=== PATIENT | female | born 1980 | race American Indian/Alaskan Native ===

== ENCOUNTER 2016-11-26 10:53 | Emergency (ER) | payer SELFPAY | END 2016-11-26 10:54 | disposition left against medical advice (07) | LOC: ED 10:53 | DX: R05 Cough (principal); Z53.21 Procedure and treatment not carried out due to patient leaving prior to being seen by health care provider ==

== ENCOUNTER 2017-01-25 08:45 | Emergency (ER) | payer OTHER ==
[2017-01-25 10:32] LABS: Basophils % (Auto) 0.6 % (0.0-1.8); Eosinophils % (Auto) 1.4 % (0.0-4.3); Hematocrit 40.9 % (30.3-42.9); Mean Corpuscular HGB Conc 34 % (30-34); Mean Corpuscular Hemoglobin 32 pg (28-32); Mean Corpuscular Volume 93 fl (79-97); Platelet Count 201 K/mm3 (140-440); Red Blood Count 4.42 M/mm3 (3.65-5.03); Red Cell Distribution Width 13.9 % (13.2-15.2); White Blood Count 5.4 K/mm3 (4.5-11.0)
[2017-01-25 10:53] LABS: Alanine Aminotransferase 30 units/L (7-56); Albumin 4.2 g/dL (3.9-5); Albumin/Globulin Ratio 1.2 %; Alkaline Phosphatase 53 units/L (35-129); Anion Gap 14 mmol/L; Blood Urea Nitrogen 10 mg/dL (7-17); Carbon Dioxide 26 mmol/L (22-30); Chloride 102.3 mmol/L (98-107); Glucose 91 mg/dL (65-100); Lipase 20 units/L (13-60); Potassium 3.5 mmol/L (3.6-5.0); Sodium 139 mmol/L (137-145); Total Protein 7.7 g/dL (6.3-8.2)
[2017-01-25 12:35] LABS: Bacteria,Urine 1+ /HPF (Negative); Bilirubin,Urine NEG (Negative); Blood,Urine MOD (Negative); Ketones,Urine NEG (Negative); Leukocyte Esterase,Urine NEG (Negative); Mucus,Urine 1+ /HPF; Nitrite,Urine NEG (Negative); Protein,Urine <15 mg/dL mg/dL (Negative); Urobilinogen,Urine < 2.0 mg/dL (<2.0)
--- NOTE | 2017-01-25 15:15 | Emergency Department Report ---
ED Abdominal Pain HPI - General Chief Complaint: Abdominal Pain Stated Complaint: RT SIDE PAIN Time Seen by Provider: 01/25/17 15:02 Source: patient Mode of arrival: Ambulatory Limitations: No Limitations - History of Present Illness Initial Comments: Patient comes into the ER today with complaints of right flank pain for the past week. Patient states that it started off as kind of a dull ache and it has now progressed to a sharp pain in her right flank. Patient denies any dysuria, abdominal pain, nausea, vomiting, bowel changes. Patient denies any history of kidney stones. Patient does state that she has noticed a little bit of blood in her urine. Patient states that it feels like the pain is inside her. Patient states that movement does seem to make the pain worse as well as deep breathing. MD Complaint: flank pain -: week(s) (1) Location: R flank - Related Data Previous Rx's Medication Instructions Recorded Last Taken Type Ciprofloxacin HCl [Ciprofloxacin 500 mg PO BID #14 tablet 01/25/17 Unknown Rx TAB] predniSONE [Deltasone] 60 mg PO QDAY 5 Days 01/25/17 Unknown Rx traMADol [Ultram] 50 mg PO Q4HR PRN #18 tablet 01/25/17 Unknown Rx Allergies Allergy/AdvReac Type Severity Reaction Status Date / Time No Known Allergies Allergy Unverified 01/25/17 09:36 ED Review of Systems ROS: Stated complaint: RT SIDE PAIN Other details as noted in HPI Constitutional: denies: chills, fever Eyes: denies: eye pain, eye discharge, vision change ENT: denies: ear pain, throat pain Respiratory: denies: cough, shortness of breath, wheezing Cardiovascular: denies: chest pain, palpitations Endocrine: no symptoms reported Gastrointestinal: abdominal pain (right flank). denies: nausea, vomiting, diarrhea, constipation Genitourinary: hematuria. denies: urgency, dysuria, discharge Musculoskeletal: denies: back pain, joint swelling, arthralgia Skin: denies: rash, lesions Neurological: denies: headache, weakness, paresthesias Psychiatric: denies: anxiety, depression Hematological/Lymphatic: denies: easy bleeding, easy bruising ED Past Medical Hx - Medications Home Medications: Home Medications Medication Instructions Recorded Confirmed Last Taken Type Ciprofloxacin HCl [Ciprofloxacin 500 mg PO BID #14 tablet 01/25/17 Unknown Rx TAB] predniSONE [Deltasone] 60 mg PO QDAY 5 Days 01/25/17 Unknown Rx traMADol [Ultram] 50 mg PO Q4HR PRN #18 tablet 01/25/17 Unknown Rx ED Physical Exam - General Limitations: No Limitations General appearance: alert, in no apparent distress, obese - Head Head exam: Present: atraumatic, normocephalic - Eye Eye exam: Present: normal appearance - ENT ENT exam: Present: mucous membranes moist - Neck Neck exam: Present: normal inspection - Respiratory Respiratory exam: Present: normal lung sounds bilaterally. Absent: respiratory distress, decreased breath sounds - Cardiovascular Cardiovascular Exam: Present: regular rate, normal rhythm. Absent: systolic murmur, diastolic murmur, rubs, gallop - GI/Abdominal GI/Abdominal exam: Present: soft, tenderness (right flank tenderness and right lower quadrant), normal bowel sounds. Absent: distended, guarding, rebound - Extremities Exam Extremities exam: Present: normal inspection - Back Exam Back exam: Present: normal inspection, CVA tenderness (R) - Neurological Exam Neurological exam: Present: alert, oriented X3, CN II-XII intact - Psychiatric Psychiatric exam: Present: normal affect, normal mood - Skin Skin exam: Present: warm, dry, intact, normal color. Absent: rash ED Course Vital Signs 01/25/17 01/25/17 09:37 16:06 Temperature 98.2 F Pulse Rate 73 67 Respiratory 20 Rate Blood Pressure 173/109 Blood Pressure 143/106 [Left] O2 Sat by Pulse 99 97 Oximetry ED Medical Decision Making - Lab Data Result diagrams: 01/25/17 10:00 01/25/17 10:00 Lab Results 01/25/17 01/25/17 01/25/17 Range/Units 10:00 10:00 12:15 WBC 5.4 (4.5-11.0) K/mm3 RBC 4.42 (3.65-5.03) M/mm3 Hgb 14.0 (10.1-14.3) gm/dl Hct 40.9 (30.3-42.9) % MCV 93 (79-97) fl MCH 32 (28-32) pg MCHC 34 (30-34) % RDW 13.9 (13.2-15.2) % Plt Count 201 (140-440) K/mm3 Lymph % (Auto) 29.7 (13.4-35.0) % Baca % (Auto) 5.8 (0.0-7.3) % Eos % (Auto) 1.4 (0.0-4.3) % Baso % (Auto) 0.6 (0.0-1.8) % Lymph # 1.6 (1.2-5.4) K/mm3 Baca # 0.3 (0.0-0.8) K/mm3 Eos # 0.1 (0.0-0.4) K/mm3 Baso # 0.0 (0.0-0.1) K/mm3 Seg Neutrophils % 62.5 (40.0-70.0) % Seg Neutrophils # 3.4 (1.8-7.7) K/mm3 Sodium 139 (137-145) mmol/L Potassium 3.5 L (3.6-5.0) mmol/L Chloride 102.3 (98-107) mmol/L Carbon Dioxide 26 (22-30) mmol/L Anion Gap 14 mmol/L BUN 10 (7-17) mg/dL Creatinine 0.8 (0.7-1.2) mg/dL Estimated GFR > 60 ml/min BUN/Creatinine Ratio 12.50 % Glucose 91 (65-100) mg/dL Calcium 9.0 (8.4-10.2) mg/dL Total Bilirubin 0.40 (0.1-1.2) mg/dL AST 21 (5-40) units/L ALT 30 (7-56) units/L Alkaline Phosphatase 53 (35-129) units/L Total Protein 7.7 (6.3-8.2) g/dL Albumin 4.2 (3.9-5) g/dL Albumin/Globulin Ratio 1.2 % Lipase 20 (13-60) units/L HCG, Qual (Negative) Urine Color Yellow (Yellow) Urine Turbidity Clear (Clear) Urine pH 6.0 (5.0-7.0) Ur Specific Greer 1.019 (1.003-1.030) Urine Protein <15 mg/dl (Negative) mg/dL Urine Glucose (UA) Neg (Negative) mg/dL Urine Ketones Neg (Negative) mg/dL Urine Blood Mod (Negative) Urine Nitrite Neg (Negative) Urine Bilirubin Neg (Negative) Urine Urobilinogen < 2.0 (<2.0) mg/dL Ur Leukocyte Esterase Neg (Negative) Urine WBC (Auto) 3.0 (0.0-6.0) /HPF Urine RBC (Auto) 3.0 (0.0-6.0) /HPF U Epithel Cells (Auto) 2.0 (0-13.0) /HPF Urine Bacteria (Auto) 1+ (Negative) /HPF Urine Mucus 1+ /HPF 01/25/17 Range/Units 14:27 WBC (4.5-11.0) K/mm3 RBC (3.65-5.03) M/mm3 Hgb (10.1-14.3) gm/dl Hct (30.3-42.9) % MCV (79-97) fl MCH (28-32) pg MCHC (30-34) % RDW (13.2-15.2) % Plt Count (140-440) K/mm3 Lymph % (Auto) (13.4-35.0) % Baca % (Auto) (0.0-7.3) % Eos % (Auto) (0.0-4.3) % Baso % (Auto) (0.0-1.8) % Lymph # (1.2-5.4) K/mm3 Baca # (0.0-0.8) K/mm3 Eos # (0.0-0.4) K/mm3 Baso # (0.0-0.1) K/mm3 Seg Neutrophils % (40.0-70.0) % Seg Neutrophils # (1.8-7.7) K/mm3 Sodium (137-145) mmol/L Potassium (3.6-5.0) mmol/L Chloride (98-107) mmol/L Carbon Dioxide (22-30) mmol/L Anion Gap mmol/L BUN (7-17) mg/dL Creatinine (0.7-1.2) mg/dL Estimated GFR ml/min BUN/Creatinine Ratio % Glucose (65-100) mg/dL Calcium (8.4-10.2) mg/dL Total Bilirubin (0.1-1.2) mg/dL AST (5-40) units/L ALT (7-56) units/L Alkaline Phosphatase (35-129) units/L Total Protein (6.3-8.2) g/dL Albumin (3.9-5) g/dL Albumin/Globulin Ratio % Lipase (13-60) units/L HCG, Qual Negative (Negative) Urine Color (Yellow) Urine Turbidity (Clear) Urine pH (5.0-7.0) Ur Specific Greer (1.003-1.030) Urine Protein (Negative) mg/dL Urine Glucose (UA) (Negative) mg/dL Urine Ketones (Negative) mg/dL Urine Blood (Negative) Urine Nitrite (Negative) Urine Bilirubin (Negative) Urine Urobilinogen (<2.0) mg/dL Ur Leukocyte Esterase (Negative) Urine WBC (Auto) (0.0-6.0) /HPF Urine RBC (Auto) (0.0-6.0) /HPF U Epithel Cells (Auto) (0-13.0) /HPF Urine Bacteria (Auto) (Negative) /HPF Urine Mucus /HPF - Radiology Data Radiology results: report reviewed CT scan of the abdomen and pelvis without contrast reveals normal-appearing liver, spleen, pancreas, gallbladder, kidneys, appendix. There is no hydronephrosis or kidney stones noted. - Medical Decision Making Patient is nontoxic and hemodynamically stable. The patient does have hematuria noted on lab work and history of symptoms concerning for possible kidney stone. CT imaging obtained and reviewed the results with patient in room. CT imaging as well as lab workup here essentially unremarkable other than some hematuria. Patient states that she has the pain that is worse with movement as well as deep breathing. I have some concern for possible patient having a noncalcified kidney stone versus potentially pinched nerve in her back causing her symptoms. I will refer patient to urology for further evaluation of her hematuria and start patient on some medications for possible pinched nerve in her back. Patient is in agreement with treatment plan and patient is stable for discharge. Critical care attestation.: If time is entered above; I have spent that time in minutes in the direct care of this critically ill patient, excluding procedure time. ED Disposition Clinical Impression: Right flank pain, Hematuria Disposition: TO HOME OR SELFCARE Is pt being admited?: No Does the pt Need Aspirin: No Condition: Good Instructions: Acute Hematuria (ED), Flank Pain (ED) Prescriptions: Ciprofloxacin HCl [Ciprofloxacin TAB] 500 mg PO BID #14 tablet predniSONE [Deltasone] 60 mg PO QDAY 5 Days traMADol [Ultram] 50 mg PO Q4HR PRN #18 tablet PRN Reason: Pain Referrals: PRIMARY CARE, [Primary Care Provider] - 3-5 Days RAH HUANG MD [Staff Physician] - 3-5 Days Time of Disposition: 16:27
--- NOTE | 2017-01-25 15:55 | Cat Scan Report ---
CT of the abdomen and pelvis without contrast. History: Right flank pain with hematuria. Findings: The liver, spleen, pancreas, and gallbladder are normal. The kidneys are normal in size and configuration with no evidence of mass or hydronephrosis. No intrarenal calculi are seen. No ureteral stones or dilatation. No significant pelvic findings are seen. There is no radiographic evidence of appendicitis. Impression: Negative study.
[2017-01-25 16:07] VITALS: BP 143/106
== END 2017-01-25 16:35 | disposition home or self-care (01) ==
LOC: ED 08:45
DX: R10.30 Lower abdominal pain, unspecified (principal); R31.9 Hematuria, unspecified
CPT/HCPCS: 36415; 74176; 80053; 81001; 83690; 84703; 85025; 99284

== ENCOUNTER 2017-04-06 10:31 | Emergency (ER) | payer MEDICAID, OTHER ==
[2017-04-06 12:02] LABS: Basophils % (Auto) 0.5 % (0.0-1.8); Eosinophils % (Auto) 4.1 % (0.0-4.3); Hematocrit 39.8 % (30.3-42.9); Hemoglobin 13.5 gm/dl (10.1-14.3); Mean Corpuscular HGB Conc 34 % (30-34); Mean Corpuscular Hemoglobin 31 pg (28-32); Mean Corpuscular Volume 93 fl (79-97); Platelet Count 201 K/mm3 (140-440); Red Cell Distribution Width 14.5 % (13.2-15.2); White Blood Count 4.9 K/mm3 (4.5-11.0)
[2017-04-06 12:07] LABS: Alanine Aminotransferase 22 units/L (7-56); Albumin 4.1 g/dL (3.9-5); Albumin/Globulin Ratio 1.4 %; Alkaline Phosphatase 61 units/L (35-129); Anion Gap 16 mmol/L; Blood Urea Nitrogen 8 mg/dL (7-17); Carbon Dioxide 26 mmol/L (22-30); Chloride 103.7 mmol/L (98-107); Glucose 97 mg/dL (65-100); Potassium 3.6 mmol/L (3.6-5.0); Sodium 142 mmol/L (137-145)
--- NOTE | 2017-04-06 13:54 | Emergency Department Report ---
<MAICOL GALLEGOS - Last Filed: 04/06/17 14:14> ED Chest Pain HPI - General Chief Complaint: Abdominal Pain Stated Complaint: RIGHT FLANK PAIN Time Seen by Provider: 04/06/17 13:43 - Related Data Previous Rx's Medication Instructions Recorded Last Taken Type Ciprofloxacin HCl [Ciprofloxacin 500 mg PO BID #14 tablet 01/25/17 Unknown Rx TAB] predniSONE [Deltasone] 60 mg PO QDAY 5 Days 01/25/17 Unknown Rx traMADol [Ultram] 50 mg PO Q4HR PRN #18 tablet 01/25/17 Unknown Rx Naproxen [Naprosyn TAB] 500 mg PO BID PRN #20 tablet 04/06/17 Unknown Rx Allergies Allergy/AdvReac Type Severity Reaction Status Date / Time No Known Allergies Allergy Unverified 01/25/17 09:36 ED Review of Systems ROS: Stated complaint: RIGHT FLANK PAIN Other details as noted in HPI ED Past Medical Hx - Medications Home Medications: Home Medications Medication Instructions Recorded Confirmed Last Taken Type Ciprofloxacin HCl [Ciprofloxacin 500 mg PO BID #14 tablet 01/25/17 Unknown Rx TAB] predniSONE [Deltasone] 60 mg PO QDAY 5 Days 01/25/17 Unknown Rx traMADol [Ultram] 50 mg PO Q4HR PRN #18 tablet 01/25/17 Unknown Rx Naproxen [Naprosyn TAB] 500 mg PO BID PRN #20 tablet 04/06/17 Unknown Rx ED Course Vital Signs 04/06/17 04/06/17 04/06/17 10:36 14:34 17:02 Temperature 97.9 F Pulse Rate 69 Respiratory 18 16 Rate Blood Pressure 153/106 Blood Pressure [Left] O2 Sat by Pulse 99 Oximetry 04/06/17 20:12 Temperature Pulse Rate 68 Respiratory 18 Rate Blood Pressure Blood Pressure 126/88 [Left] O2 Sat by Pulse 98 Oximetry ED Medical Decision Making - Lab Data Result diagrams: 04/06/17 11:30 04/06/17 11:30 - EKG Data -: EKG Interpreted by Me - EKG Data 04/06/17 14:14 Sinus bradycardia with rate of 58 beats per minutes normal axis nonspecific ST changes in V2, normal intervals, no ST elevations. Critical care attestation.: If time is entered above; I have spent that time in minutes in the direct care of this critically ill patient, excluding procedure time. ED Disposition Clinical Impression: Flank pain, chronic Chest pain Qualifiers: Chest pain type: chest pain on breathing Qualified Code(s): R07.1 - Chest pain on breathing; R07.81 - Pleurodynia Disposition: DC-01 TO HOME OR SELFCARE Condition: Stable Instructions: Chest Pain (ED), Flank Pain (ED) Additional Instructions: Patient advised to return to [facility] tomorrow for lower extremity Doppler Prescriptions: Naproxen [Naprosyn TAB] 500 mg PO BID PRN #20 tablet PRN Reason: Pain Referrals: TIFFANIE VIDAL MD [Staff Physician] - 3-5 Days [email or web address] [Provider Group] - 3-5 Days Forms: Work/School Release Form(ED) <YAMILEX SEPULVEDA - Last Filed: 04/06/17 20:22> ED Chest Pain HPI - General Source: patient Mode of arrival: Ambulatory Limitations: No Limitations - History of Present Illness Initial Comments: 36-year-old female past medical history smoker, obesity presents with complaint of pleuritic chest pain and right-sided flank pain for several months. Patient is awake alert and oriented 3 nontoxic-appearing. States it hurts worse when she takes a deep breath. Also pointing to her right flank and states she has intermittently sharp pain there. Denies increased urinary frequency dysuria or foul urine hematuria, shortness of breath, palpitations, abdominal pain, nausea and vomiting. Patient states pain is currently 6 out of 10. no hx of PE, reports no leg swelling, not on BC. MD Complaint: chest pain Onset/Timin -: month(s) Onset: during rest Pain Location: right chest Severity: moderate Severity scale (0 -10): 6 Quality: aching Consistency: intermittent Worsens With: inspiration Treatments Prior to Arrival: none Heart Score - HEART Score History: Slightly suspicious EKG: Normal Age: < 45 Risk factors: 1-2 risk factors Troponin: < normal limit HEART Score: 1 ED Review of Systems Constitutional: denies: chills, fever Eyes: denies: eye pain, eye discharge, vision change ENT: denies: ear pain, throat pain Respiratory: denies: cough, shortness of breath, wheezing Cardiovascular: chest pain. denies: palpitations Endocrine: no symptoms reported Gastrointestinal: denies: abdominal pain, nausea, diarrhea Genitourinary: denies: urgency, dysuria, discharge Musculoskeletal: back pain (right side back/flank pain). denies: joint swelling , arthralgia Skin: denies: rash, lesions Neurological: denies: headache, weakness, paresthesias Psychiatric: denies: anxiety, depression Hematological/Lymphatic: denies: easy bleeding, easy bruising ED Past Medical Hx - Past Medical History Previous Medical History?: Yes Hx Hypertension: Yes - Surgical History Past Surgical History?: Yes Additional Surgical History: x 4 - Social History Smoking Status: Never Smoker Substance Use Type: None ED Physical Exam - General Limitations: No Limitations General appearance: alert, in no apparent distress - Head Head exam: Present: atraumatic, normocephalic - Eye Eye exam: Present: normal appearance, PERRL, EOMI - ENT ENT exam: Present: mucous membranes moist - Neck Neck exam: Present: normal inspection - Respiratory Respiratory exam: Present: normal lung sounds bilaterally (no rales no rhonchi on exam bilaterally). Absent: respiratory distress - Cardiovascular Cardiovascular Exam: Present: regular rate, normal rhythm. Absent: systolic murmur, diastolic murmur, rubs, gallop - GI/Abdominal GI/Abdominal exam: Present: soft, normal bowel sounds - Extremities Exam Extremities exam: Present: normal inspection - Back Exam Back exam: Present: normal inspection - Neurological Exam Neurological exam: Present: alert, oriented X3 - Psychiatric Psychiatric exam: Present: normal affect, normal mood - Skin Skin exam: Present: warm, dry, intact, normal color. Absent: rash FAMILIA score - Familia Score Age > 65: (0) No Aspirin use within the Past 7 Days: (0) No 3 or more CAD Risk Factors: (0) No 2 or more Angina events in past 24 hrs: (0) No Known CAD with more than 50% Stenosis: (0) No Elevated Cardiac Markers: (0) No ST Deviation Greater than 0.5mm: (0) No FAMILIA Score: 0 ED Medical Decision Making - Lab Data Result diagrams: 04/06/17 11:30 04/06/17 11:30 - Medical Decision Making A/P: Chest pain, right flank pain, possible early CHF 1-case discussed with ED attending before discharge, as per attending will discharge patient with outpatient primary care and cardiology follow-up. Patient has no lower extremity swelling no peripheral edema no abdominal edema and no rales rhonchi or crackles on clinical auscultation of the lung ji 2-I advised patient to decrease smoking and decrease salt in her diet 3-patient informed of possible early CHF. No other significant lab or imaging abnormalities 4- HEART score 1, FAMILIA score 0. CTA shows no PE. ED Disposition Is pt being admited?: No Does the pt Need Aspirin: No Time of Disposition: 20:19
[2017-04-06 14:03] LABS: Bacteria,Urine 1+ /HPF (Negative); Bilirubin,Urine NEG (Negative); Blood,Urine MOD (Negative); Ketones,Urine NEG (Negative); Leukocyte Esterase,Urine NEG (Negative); Mucus,Urine 3+ /HPF; Nitrite,Urine NEG (Negative); Urobilinogen,Urine < 2.0 mg/dL (<2.0)
[2017-04-06] MEDS ORDERED: MOTRIN PO ONE (14:16)
[2017-04-06] MEDS ORDERED: ZOFRAN ODT PO ONE (16:51)
[2017-04-06] MEDS ORDERED: NORCO 5/325 PO ONE (16:51)
[2017-04-06] MEDS ORDERED: NACL ONE (17:46)
--- NOTE | 2017-04-06 17:53 | Cat Scan Report ---
FINAL REPORT EXAM: CT ABDOMEN PELVIS WO CON HISTORY: ? right sided kidney stone TECHNIQUE: Helical CT scan through the abdomen and pelvis without contrast. Images are reconstructed in the sagittal and coronal planes. PRIORS: 01/25/2017 FINDINGS: Solid organ and bowel evaluation is limited without intravenous contrast. Bowel evaluation is limited without oral contrast. The lung bases are clear. There is diffuse low-attenuation of the liver consistent with fatty infiltration. Otherwise, the liver appears normal.The gallbladder, pancreas, spleen and adrenal glands appear normal. The kidneys appear grossly normal. The pelvic organs appear grossly normal. There are numerous phleboliths in the pelvis. The stomach appears grossly within normal limits. There are no abnormally dilated loops of bowel or acute inflammatory changes. A normal-appearing appendix is identified. The abdominal aorta has a normal diameter. The bones and subcutaneous soft tissues are unremarkable for age. IMPRESSION: No acute findings in the abdomen/pelvis. No evidence of hydronephrosis or urolithiasis. Fatty infiltration of the liver
--- NOTE | 2017-04-06 19:51 | Cat Scan Report ---
FINAL REPORT PROCEDURE: CT ANGIO CHEST TECHNIQUE: Computerized tomographic angiography of the chest was performed after the IV injection of iodinated nonionic contrast including image processing. The image data was postprocessed using 2-dimensional multiplanar reformatted (MPR) and 3-dimensional (MIP and/or volume rendered) techniques. HISTORY: d-dimer+ right sided CP COMPARISON: No prior studies are available for comparison. FINDINGS: CHF is suspected. No pulmonary edema is seen. Mild hypoventilatory changes are seen. Thoracic aorta is normal in size without evidence of dissection. Likely mild lymph nodes are seen in the anterior mediastinum. These are probably reactive. No pulmonary embolus is seen. IMPRESSION: CHF is seen without evidence of pulmonary embolus.
[2017-04-06 20:13] VITALS: BP 126/88
--- NOTE | 2017-04-07 09:55 | XRay Report ---
ROUTINE CHEST, TWO VIEWS: HISTORY: chest pain. The trachea, heart, mediastinal contour, lung ji and bony thorax are unremarkable. IMPRESSION: Unremarkable chest x-ray.
== END 2017-04-06 20:45 | disposition home or self-care (01) ==
LOC: ED 10:31
DX: R10.30 Lower abdominal pain, unspecified (principal); I10 Essential (primary) hypertension; R07.89 Other chest pain; G89.29 Other chronic pain
CPT/HCPCS: 36415; 71020; 71275; 74176; 80053; 81001; 81025; 82550; 84484; 85025; 85379; 93005; 93010; 99284; Q9967; Q0162

== ENCOUNTER 2017-04-08 12:34 | Outpatient (CLI) | payer MEDICAID ==
--- NOTE | 2017-04-09 12:55 | Vascular Lab Report ---
LOWER EXTREMITY VENOUS DUPLEX: REASON FOR EXAM: swelling of the lower extremities. COMMENTS ON THE RIGHT: All veins visualized are freely compressible without evidence of internal echogenicity. Flow is spontaneous and phasic throughout. COMMENTS ON THE LEFT: All veins visualized are freely compressible without evidence of internal echogenicity. Flow is spontaneous and phasic throughout. IMPRESSION: No evidence of acute or chronic deep venous thrombosis in either lower extremity.
== END 2017-04-08 12:35 | disposition home or self-care (01) ==
LOC: VAS 12:34
PROVIDERS: ATTEND Physician Assistant
DX: M79.89 Other specified soft tissue disorders (principal)
CPT/HCPCS: 93970